=== PATIENT | male | born 1995 | race African-American/Black ===

== ENCOUNTER 2019-06-09 10:21 | Emergency (ER) | payer BC, SELFPAY ==
--- NOTE | ~2019-06-09 | XR_ITS ---
EXAMINATION: XR chest 2V EXAM DATE: 06/09/2019 12:26 INDICATION: Cough. TECHNIQUE: Frontal and lateral projections of the chest obtained and reviewed. There is no prior lauren dy for comparison. FINDINGS: The lungs are clear. There are no pleural effusions. The cardiomediastinal silhouette is within normal limits. There is no pneumothorax suspected. The bones and soft tissues are unremarkab le. IMPRESSION: Normal chest x-ray exam. Reviewed, dictated and finalized at location A. [facility] [employer] [facility] IMPRESSION: Normal chest x-ray exam.
[2019-06-09 10:26] VITALS: BP 142/102; PULSE 130; RESP 20; TEMP 36.7; O2SAT 99
[2019-06-09 12:17] VITALS: BP 145/83; PULSE 93; TEMP 36.8; O2SAT 100
--- NOTE | 2019-06-09 12:22 | PC.NURSE ---
MEDICATION FOR THIS PT IS CURRENTLY OUT ON BOTH PIXIS IN ED. CALLED PHARMACY AND THEY ARE SENDING UP MEDIATIONS
--- NOTE | 2019-06-09 12:46 | ED.URI ---
HPI - URI/Sore Throat General Chief Complaint: Upper Respiratory Infection Stated Complaint: cough, flu Time Seen by Provider: 06/09/19 11:26 Source: patient Mode of arrival: ambulatory Limitations: no limitations History of Present Illness HPI Narrative: Patient presents with persistent cough, congestion, body aches that started on Thursday. Patient states that he was seen at the urgent care on Thursday and prescribed medications, but his cough has persisted. He states he still has some fever at times when he does not take Tylenol and Motrin. He states he has been able to eat and drink. Patient states he was due to return to work but still needs a few more days off due to his symptoms so he is representing to be seen. He states he was also told that he may develop pneumonia so he is concerned the worsening cough means that he has pneumonia. Patient denies having asthma or COPD. Patient denies smoking cigarettes. Related Data Allergies Allergy/AdvReac Type Severity Reaction Status Date / Time No Known Allergies Allergy Verified 06/09/19 11:20 Review of Systems Review of Systems: Narrative: CONSTITUTIONAL: Denies fever, chills, or sweats. EYES: Denies visual changes, redness, or discharge. ENT: Reports rhinorrhea, congestion, denies sore throat, or otalgia. CARDIOVASCULAR: Denies chest pain, palpitations, or edema. RESPIRATORY: Reports cough denies dyspnea. GASTROINTESTINAL: Denies abdominal pain, nausea, vomiting, or diarrhea. GENITOURINARY: Denies dysuria or hematuria. SKIN: Denies rash or itching. MUSCULOSKELETAL: Denies back pain, joint pain, or myalgia. NEUROLOGIC: Denies headache, numbness, dizziness, or weakness. PSYCHIATRIC: Denies anxiety or depression. [facility] Social History Social History Gender identity (if verbalized by the patient): Male Exam Narrative: Exam Narrative: GENERAL: Well-appearing, well-nourished, and in no acute distress. Patient eating snacks and drinking water while in the exam room. HEAD: Normocephalic, atraumatic. EYES: PERRLA and EOMI. ENT: Nares clear, no rhinorrhea or epistaxis. Mucous membranes moist. Oropharynx without tonsillar hypertrophy exudate or other lesions. Bilateral TMs pearly mendoza nonbulging NECK: Supple. No adenopathy or masses. No carotid bruits or JVD CHEST: Clear to auscultation. No respiratory distress. No wheezes rales or rhonchi. Persistent dry cough noted during exam HEART: Regular rate and rhythm. No murmur heard. Normal peripheral pulses. EXTREMITIES: Normal range of motion. No edema. SKIN: Warm, dry, no rash. NEURO: No focal deficits. Alert and oriented x3. PSYCH: Normal mood and affect. Course Vital Signs Vital signs: Vital Signs Temperature 98.0 F 06/09/19 10:26 Pulse Rate 130 H 06/09/19 10:26 Respiratory Rate 06/09/19 10:26 Blood Pressure 142/102 H 06/09/19 10:26 Pulse Oximetry 99 06/09/19 10:26 Temperature 98.3 F 06/09/19 12:17 Pulse Rate 93 06/09/19 12:17 Respiratory Rate 06/09/19 10:26 Blood Pressure 145/83 H 06/09/19 12:17 Pulse Oximetry 100 06/09/19 12:17 MDM - URI/Sore Throat MDM Narrative Medical decision making narrative: Patient chest x-ray is negative. He does have influenza B. Patient is able to eat and drink. Patient is not toxic in appearance and is not hypoxic. Patient is afebrile at this time.. No signs of flu complication. Patient will be prescribed Tylenol with codeine for cough. Patient instructed to rest, drink fluids and take symptomatic medication for the cough. Patient instructed to return to emergency department if he has any complications. Patient also instructed to follow-up with his primary care as his blood pressure was elevated on today and if they continues he may need further work-up or hypertension medications. Differential Diagnosis Differential diagnosis: Likely upper respiratory infection, otitis media, sinusitis, viral infection, bronchitis, influenza and pharyngitis L
== END 2019-06-09 13:04 | disposition home or self-care (01) ==
PROVIDERS: Emergency Provider Emergency Medicine
DX: J10.1 Influenza due to other identified influenza virus with other respiratory manifestations (principal)
CPT/HCPCS: 71046; 87804; 99283; A9270